=== PATIENT | female | born 1950 | race Caucasian/White ===

== ENCOUNTER 2018-02-15 10:17 | Inpatient (IN) ==
[2018-02-15 10:52] LABS: Basophils % 0.2 %; Eosinophils % 0.2 %; Hematocrit 49.9 % (35.3-44.9); Hemoglobin 16.6 g/dL (11.5-15.4); Immature Granulocytes % 0.6 % (0-4); Mean Corpuscular HGB Conc 33.3 g/dL (31.6-35.5); Mean Corpuscular Hemoglobin 29.6 pg (28.0-33.3); Mean Corpuscular Volume 88.9 fL (83.0-100.0); Monocytes # 0.9 K/mcL (0.0-1.3); Monocytes % 7.1 %; Neutrophils # 8.4 K/mcL (1.6-8.9); Platelet Count 440 K/mcL (140-400); Red Blood Count 5.61 M/mcL (3.82-4.97); Red Cell Distribution Width 13.1 % (11.5-14.5); Segmented Neutrophils % 67.9 %
[2018-02-15 11:08] LABS: Albumin 4.4 g/dL (3.5-5.7); Bilirubin,Direct 0.4 mg/dL (0.0-0.2); Bilirubin,Indirect 1.3 mg/dL (0.0-1.2); Bilirubin,Total 1.7 mg/dL (0.3-1.0); Calcium 10.1 mg/dL (8.6-10.3); Globulin 4.6 g/dL (2.4-3.5); Potassium 3.7 mEq/L (3.5-5.1)
[2018-02-15] MEDS ORDERED: 0.9 % Sodium Chloride 1,000 ML IVC ONE ×2 (11:49→15:54)
--- NOTE | 2018-02-15 11:53 | Emergency Department Note ---
Disposition Clinical Impression: DARCI (acute kidney injury) Abdominal pain Qualifiers: Abdominal location: right upper quadrant Qualified Code(s): R10.11 - Right upper quadrant pain Pancreatitis Qualifiers: Chronicity: acute Pancreatitis type: unspecified pancreatitis type Acute pancreatitis complication: unspecified Qualified Code(s): K85.90 - Acute pancreatitis without necrosis or infection, unspecified Disposition: Admitted As Inpatient Condition: Undetermined Referrals: NONE,PCP [Primary Care Provider] - Forms: ED Satisfaction Letter Time of Disposition: 16:14 Nausea/Vomiting/Diarrhea HPI - General Chief complaint: ED Nausea/Vomiting/Diarrhea Stated complaint: diarrhea, weakness Time Seen by Provider: 02/15/18 11:37 Source: patient Mode of arrival: ambulatory Limitations: no limitations Nursing Notes Reviewed: Yes Vital Signs Reviewed: Yes - History of Present Illness HPI Narrative: 68-year-old female arrives to the emergency department with 5 days of nausea and inability to eat and 3 days of right upper quadrant abdominal pain. The patient states that she has also had a couple episodes of diarrhea. She denies any fevers, chills or any other previous abdominal pain similar to this. She denies any other complaints at this time. She is very uncomfortable in the room when examined. Pt Subjective Complaint: nausea, vomiting, diarrhea, abdominal pain - Related Data Home Medications Medication Instructions Recorded Confirmed No Known Home Drugs 02/15/18 02/15/18 Allergies Allergy/AdvReac Type Severity Reaction Status Date / Time No Known Allergies Allergy Verified 02/15/18 12:21 All systems ED: reviewed and negative except as stated. Constitutional: Denies: fever, chills, weakness ENT ED: Denies: congestion Cardiovascular: Denies: chest pain Respiratory: Denies: dyspnea Gastrointestinal: Reports: abdominal pain, nausea, vomiting, diarrhea. Denies: constipation, hematemesis, melena, hematochezia Genitourinary: Denies: urgency, dysuria Musculoskeletal: Denies: back pain, neck pain Neurological: Denies: headache, weakness Past Medical History - Past Medical History Attestation: Yes The following information was validated with the patient. Source: patient Medical history: Reports: no medical history Surgical history: Reports: non-contributory Psychiatric history: Reports: no psych history - Social History Smoking Status: Current every day smoker Smokeless Tobacco Status: No Alcohol use: Reports: none Drug use: Reports: none Physical Exam - General Limitations: no limitations General appearance: alert, in no apparent distress - Head Head exam: atraumatic, normocephalic, normal inspection - Eye Eye exam: Present: normal appearance, PERRL, EOMI - ENT ENT exam: normal exam, normal oropharynx, mucous membranes moist - Neck Neck exam: Present: normal inspection, full ROM, trachea midline - Chest Chest inspection: Present: normal inspection, symmetric chest wall rise - Respiratory Respiratory exam: Present: normal lung sounds bilaterally - Cardiovascular Cardiovascular exam: Present: regular rate, normal rhythm, normal heart sounds - Abdominal Exam Abdominal exam: Present: soft, tenderness (RUQ pain), guarding, Tapia's sign. Absent: distention, rebound, rigidity, Rovsing's sign, tenderness at McBurney's Point, pulsatile mass Course Vital Signs Temperature 97.3 F L 02/15/18 10:26 Pulse Rate 89 02/15/18 10:26 Respiratory Rate 18 02/15/18 10:26 Blood Pressure 104/69 02/15/18 10:26 O2 Sat by Pulse Oximetry 97 02/15/18 10:26 Temperature 97.3 F L 02/15/18 10:26 Pulse Rate 81 02/15/18 15:28 Respiratory Rate 15 02/15/18 15:28 Blood Pressure 144/83 02/15/18 15:28 O2 Sat by Pulse Oximetry 99 02/15/18 15:28 Oxygen Delivery Oxygen Delivery Room Air Nausea/Vomiting/Diarrhea - MDM Narrative Medical decision making narrative: Workup in the emergency department demonstrates elevation in lipase as well as elevated bilirubin. The patient's right upper quadrant ultrasound demonstrates no acute process including no dilation of the common bile duct. CT scan demonstrates findings consistent with pancreatitis. The patient will be admitted to the hospital this time. She again denies any desire for pain medication. The patient has no previous history of pancreatitis and no previous alcohol use. The patient agrees to plan of care and further workup. She does have a acute kidney injury noted as well from previous lab work. She denies any other complaints at this time. She will be admitted the hospital. Accepted by Dr. Coats - Lab Data Lab results reviewed: Yes I reviewed the patient's lab results. Result diagrams: 02/15/18 10:30 02/15/18 10:30 Lab Results 02/15/18 02/15/18 02/15/18 Range/Units 10:30 10:30 11:55 WBC 12.3 H (4.3-11.1) K/mcL RBC 5.61 H (3.82-4.97) M/mcL Hgb 16.6 H (11.5-15.4) g/dL Hct 49.9 H (35.3-44.9) % MCV 88.9 (83.0-100.0) fL MCH 29.6 (28.0-33.3) pg MCHC 33.3 (31.6-35.5) g/dL RDW 13.1 (11.5-14.5) % Plt Count 440 H (140-400) K/mcL MPV 9.0 L (9.4-12.4) fL Immature Gran % 0.6 (0-4) % Seg Neutrophils % 67.9 % Lymphocytes % 24.0 % Monocytes % 7.1 % Eosinophils % 0.2 % Basophils % 0.2 % Neutrophils # 8.4 (1.6-8.9) K/mcL Lymphocytes # 3.0 (0.6-4.6) K/mcL Monocytes # 0.9 (0.0-1.3) K/mcL Eosinophils # 0.0 (0.0-0.6) K/mcL Basophils # 0.0 (0.0-0.2) K/mcL Sodium 130 L (136-145) mEq/L Potassium 3.7 (3.5-5.1) mEq/L Chloride 94 L (98-107) mEq/L Carbon Dioxide 25 (23-29) mEq/L BUN 21 (8-23) mg/dL Creatinine 1.32 H (0.60-1.20) mg/dL Est GFR ( Amer) 48 L (> 60) Est GFR (Non-Af Amer) 40 L (> 60) BUN/Creatinine Ratio 16 (6-26) Glucose 118 H (70-105) mg/dL Calculated Osmolality 274 L (280-300) Calcium 10.1 (8.6-10.3) mg/dL Total Bilirubin 1.7 H (0.3-1.0) mg/dL Direct Bilirubin 0.4 H (0.0-0.2) mg/dL Indirect Bilirubin 1.3 H (0.0-1.2) mg/dL AST 29 (13-39) Units/L ALT 17 (7-52) Units/L Alkaline Phosphatase 102 (34-104) Units/L Serum Total Protein 9.0 H (6.4-8.9) g/dL Albumin 4.4 (3.5-5.7) g/dL Globulin 4.6 H (2.4-3.5) g/dL Albumin/Globulin Ratio 1.0 L (1.1-2.2) Lipase 213 H (11-82) Units/L Urine Color Yellow (Yellow) Urine Clarity Cloudy A (Clear) Urine pH 7.5 (5.0-8.0) pH Units Ur Specific [place] 1.019 (1.010-1.025) Urine Protein 100 H (Neg-Trace) mg/dL Urine Glucose (UA) 100 H (Normal) mg/dL Urine Ketones Negative (Negative) mg/dL Urine Blood Trace H (Negative) Urine Nitrite Negative (Negative) Urine Bilirubin Negative (Negative) Urine Urobilinogen Normal (Normal) mg/dL Ur Leukocyte Esterase Moderate H (Negative) Urine Microscopic RBC 3-5 H (0-3) per hpf Urine Microscopic WBC 5-15 H (0-3) per hpf Ur Squamous Epith Cells Many H (None-Few) per lpf Urine Bacteria Few (None-Few) per hpf Hyaline Casts Moderate H (None-Few) per lpf Ur Culture Indicated? NO. (NO) - Radiology Data Radiology results reviewed: Yes I reviewed the patient's radiology results. Gallbladder Ultrasound 02/15/18 11:50 IMPRESSION: 1. No acute pathology appreciated. In particular, there is no dilation of the common bile duct, and no evidence of acute cholecystitis. 2. Possible calcifications within the liver. D/ / Slava Stephens / Slava Stephens Interpreting Provider: Slava Stephens Abdomen/Pelvis CT 02/15/18 14:17 IMPRESSION: 1. Findings concerning for acute pancreatitis with secondary duodenitis. 2. 6.0 cm right adnexal cyst, likely ovarian in origin. Recommend further evaluation with ultrasound. D/ / Taj Delatorre MD / Taj Delatorre MD Interpreting Provider: Taj Delatorre MD
--- NOTE | 2018-02-15 13:01 | Emergency Department Note ---
Disposition Clinical Impression: Abdominal pain Qualifiers: Abdominal location: right upper quadrant Qualified Code(s): R10.11 - Right upper quadrant pain Disposition: Still a Patient Referrals: NONE,PCP [Primary Care Provider] - Forms: ED Satisfaction Letter General Adult HPI - General Chief complaint: ED Nausea/Vomiting/Diarrhea Stated complaint: diarrhea, weakness Time Seen by Provider: 02/15/18 11:37 Source: patient Mode of arrival: ambulatory Limitations: no limitations - History of Present Illness Pain Scale: 7 - Related Data Home Medications Medication Instructions Recorded Confirmed No Known Home Drugs 02/15/18 02/15/18 Allergies Allergy/AdvReac Type Severity Reaction Status Date / Time No Known Allergies Allergy Verified 02/15/18 12:21 Constitutional: Denies: fever, chills, weakness ENT ED: Denies: congestion Cardiovascular: Denies: chest pain Respiratory: Denies: dyspnea Gastrointestinal: Reports: abdominal pain, nausea, vomiting, diarrhea. Denies: constipation, hematemesis, melena, hematochezia Genitourinary: Denies: urgency, dysuria Musculoskeletal: Denies: back pain, neck pain Neurological: Denies: headache, weakness Past Medical History - Past Medical History Medical history: Reports: no medical history Surgical history: Reports: non-contributory Psychiatric history: Reports: no psych history - Social History Smoking Status: Current every day smoker Smokeless Tobacco Status: No Alcohol use: Reports: none Drug use: Reports: none Physical Exam - General Limitations: no limitations General appearance: alert, in no apparent distress Course Vital Signs Temperature 97.3 F L 02/15/18 10:26 Pulse Rate 89 02/15/18 10:26 Respiratory Rate 18 02/15/18 10:26 Blood Pressure 104/69 02/15/18 10:26 O2 Sat by Pulse Oximetry 97 02/15/18 10:26 Temperature 97.3 F L 02/15/18 10:26 Pulse Rate 89 02/15/18 10:26 Respiratory Rate 18 02/15/18 10:26 Blood Pressure 104/69 02/15/18 10:26 O2 Sat by Pulse Oximetry 97 02/15/18 10:26 Oxygen Delivery Oxygen Delivery Room Air Medical Decision Making - Lab Data Result diagrams: 02/15/18 10:30 02/15/18 10:30 Lab Results 02/15/18 02/15/18 Range/Units 10:30 10:30 WBC 12.3 H (4.3-11.1) K/mcL RBC 5.61 H (3.82-4.97) M/mcL Hgb 16.6 H (11.5-15.4) g/dL Hct 49.9 H (35.3-44.9) % MCV 88.9 (83.0-100.0) fL MCH 29.6 (28.0-33.3) pg MCHC 33.3 (31.6-35.5) g/dL RDW 13.1 (11.5-14.5) % Plt Count 440 H (140-400) K/mcL MPV 9.0 L (9.4-12.4) fL Immature Gran % 0.6 (0-4) % Seg Neutrophils % 67.9 % Lymphocytes % 24.0 % Monocytes % 7.1 % Eosinophils % 0.2 % Basophils % 0.2 % Neutrophils # 8.4 (1.6-8.9) K/mcL Lymphocytes # 3.0 (0.6-4.6) K/mcL Monocytes # 0.9 (0.0-1.3) K/mcL Eosinophils # 0.0 (0.0-0.6) K/mcL Basophils # 0.0 (0.0-0.2) K/mcL Sodium 130 L (136-145) mEq/L Potassium 3.7 (3.5-5.1) mEq/L Chloride 94 L (98-107) mEq/L Carbon Dioxide 25 (23-29) mEq/L BUN 21 (8-23) mg/dL Creatinine 1.32 H (0.60-1.20) mg/dL Est GFR ( Amer) 48 L (> 60) Est GFR (Non-Af Amer) 40 L (> 60) BUN/Creatinine Ratio 16 (6-26) Glucose 118 H (70-105) mg/dL Calculated Osmolality 274 L (280-300) Calcium 10.1 (8.6-10.3) mg/dL Total Bilirubin 1.7 H (0.3-1.0) mg/dL Direct Bilirubin 0.4 H (0.0-0.2) mg/dL Indirect Bilirubin 1.3 H (0.0-1.2) mg/dL AST 29 (13-39) Units/L ALT 17 (7-52) Units/L Alkaline Phosphatase 102 (34-104) Units/L Serum Total Protein 9.0 H (6.4-8.9) g/dL Albumin 4.4 (3.5-5.7) g/dL Globulin 4.6 H (2.4-3.5) g/dL Albumin/Globulin Ratio 1.0 L (1.1-2.2) Lipase 213 H (11-82) Units/L Attestation Statement - Attestation Attestation: I examined this patient and my medical decision-making was reviewed with the Resident Physician. I agree with the documented findings, disposition and treatment plan as described except to the extent set forth below. 68 year old terra presents to the ED with complaints of N/V/D with (+) murphys sign and states taht thsi has been going on for a frw days. SHe has elevated bili, lipase, and mild elevation in WBC which is concerning for acute luciana. We will conitune with abdominal pain workup and obtain an US to rule out acute luciana and then if that is unremarkbale we will followup with a ABCT. Yuridia has declined pain medications at this time
[2018-02-15 13:07] LABS: Bilirubin,Urine Negative (Negative); Blood,Urine Trace (Negative); Clarity,Urine Cloudy (Clear); Color,Urine Yellow (Yellow); Glucose,Urine (UA) 100 mg/dL (Normal); Ketones,Urine Negative (Negative); Leukocyte Esterase,Urine Moderate (Negative); Nitrite,Urine Negative (Negative); PH,Urine 7.5 pH Units (5.0-8.0); Protein,Urine 100 mg/dL (Neg-Trace); Specific Gravity,Urine 1.019 (1.010-1.025); Urobilinogen,Urine Normal (Normal)
[2018-02-15 13:11] LABS: Bacteria,Urine Few per hpf (None-Few); Hyaline Casts,Urine Moderate per lpf (None-Few); Squamous Epithelial Cell,Urine Many per lpf (None-Few)
[2018-02-15] MEDS ORDERED: *HR* HYDROcodone/Acet 5/325 mg TABLET PO PRN (16:38)
[2018-02-15] MEDS ORDERED: Naloxone 0.4 MG/ML INJ IVP PRN ×2 (16:38)
[2018-02-15] MEDS ORDERED: Ondansetron 4 MG/2 ML VIAL IVP PRN (16:38)
--- NOTE | 2018-02-15 17:15 | Internal Med History&Physical ---
Date of Encounter: 02/15/18 Time of Encounter: 17:13 Assessment and Plan (1) Pancreatitis Current visit: Yes Status: Acute Patient presents today with right upper quadrant and left upper quadrant abdominal pain as well as nausea and vomiting since Thursday. She reports that she has been unable to tolerate oral intake due to vomiting. CT of abdomen and pelvis today reveals acute pancreatitis. Gallbladder ultrasound was negative for cholecystitis. His workup included a lipase which resulted to 13, total bilirubin of 1.7, direct bilirubin 0.4, indirect bilirubin 1.3. All vitals remained stable. -Start conservative treatment including IVF, analgesia, and antiemetics -IVF 0.9% NS at 125ml/hr -Zofran 4mg Q6hrs for nausea -NPO now -[place] 5/325 Q6hrs PRN -Continuous tele, -Recheck lipase in am -CBCD, CMP in am. -check lipids in am -lipase in am Qualifiers: Chronicity: acute Pancreatitis type: unspecified pancreatitis type Acute pancreatitis complication: unspecified Qualified Code(s): K85.90 - Acute pancreatitis without necrosis or infection, unspecified (2) Abdominal pain Current visit: Yes Status: Acute Qualifiers: Abdominal location: right upper quadrant Qualified Code(s): R10.11 - Right upper quadrant pain (3) DARCI (acute kidney injury) Current visit: Yes Status: Acute secondary to dehydration. She has been unable to eat or drink d/t N/V. Pancreatitis per CT today. IVF Avoid nephrotoxins serum cr in am (4) Nausea & vomiting Current visit: Yes Status: Acute Qualifiers: Vomiting Intractability: unspecified Qualified Code(s): R11.2 - Nausea with vomiting, unspecified (5) Dehydration Current visit: Yes Status: Acute Due to multiple days of nausea and vomiting secondary to acute pancreatitis. See further planning above (6) DVT prophylaxis Current visit: Yes Status: Acute Heparin 5000 units SC BID Internal Medicine - H&P: HPI Chief complaint: abdominal pain Admitted From: Home Plans for Post Hospital Care: Home History of present illness: Ms. Fuentes is a 68 year old female with no prior medical history presents today with right upper quadrant and left upper quadrant abdominal pain as well as nausea and vomiting since Thursday. She describes that abdominal pain as dull , intermittent, spasm like pain. She reports that she has been unable to tolerate oral intake due to vomiting. She denies any fevers, chills, chest pain , dyspnea, flank pain, or dysuria. CT of abdomen and pelvis today reveals acute pancreatitis. Gallbladder ultrasound was negative for cholecystitis. His workup included a lipase which resulted to 13, total bilirubin of 1.7, direct bilirubin 0.4, indirect bilirubin 1.3. Past Med Surg Social Fam HX - Past Medical History Medical history: no medical history Psychiatric history: no psych history - Past Surgical History Surgical History: non-contributory - Social History Smoking Status: Current every day smoker Smokeless Tobacco Status: No Alcohol use: none Drug use: none - Family History Father Hx Family Cardiac Disorders: Yes ([place]) Sister Hx Family Cancer: Yes Hx Family Endocrine Disorder: Yes (DM) Internal Medicine - H&P: Meds No Known Home Drugs 02/15/18 [History] 3 Allergy/AdvReac Type Severity Reaction Status Date / Time No Known Allergies Allergy Verified 02/15/18 12:21 All Systems PM: A 10-system review of systems was performed and is negative for pertinent findings except as documented above in the HPI. Review of systems: REVIEW OF SYSTEMS GENERAL: Positive for any nausea, vomiting, fevers, chills, & weight loss. NEUROLOGIC: Negative for any blurry vision, blind spots, double vision, facial asymmetry, dysphagia, dysarthria, hemiparesis, hemisensory deficits, vertigo, ataxia. HEENT: Negative for any head trauma, neck trauma, neck stiffness, photophobia, phonophobia, sinusitis, rhinitis. CARDIAC: Negative for any chest pain, dyspnea on exertion, paroxysmal nocturnal dyspnea, peripheral edema. PULMONARY: Negative for any shortness of breath, wheezing, COPD, or TB exposure. GASTROINTESTINAL: Negative for any bright red blood per rectum, melena. Positive for right and left upper quadrant abdominal pain GENITOURINARY: Negative for any dysuria, hematuria, incontinence. INTEGUMENTARY: Negative for any rashes, cuts, insect bites. RHEUMATOLOGIC: Negative for any joint pains, photosensitive rashes, history of vasculitis or kidney problems. HEMATOLOGIC: Negative for any abnormal bruising, frequent infections or bleeding. - Constitutional Vitals: Temp Pulse Resp BP Pulse Ox 97.3 F L 69 15 147/92 98 02/15/18 10:26 02/15/18 16:53 02/15/18 16:53 02/15/18 16:53 02/15/18 16:53 General appearance: Present: cooperative, A&O X 3, no acute distress, answers questions appropriately Exam: PHYSICAL EXAMINATION: GENERAL: The patient is a well-developed, well-nourished female in no apparent distress. She is alert and oriented x3. NECK: Supple. No carotid bruits. No lymphadenopathy or thyromegaly. LUNGS: Clear to auscultation. HEART: Regular rate and rhythm without murmur. ABDOMEN: Soft, and nondistended. Positive bowel sounds. No hepatosplenomegaly was noted. RUQ, LUQ abdominal pain to palpation and + carranza's sign EXTREMITIES: Without any cyanosis, 2+ B/L radial and pedal pulses. No extermity edema, erythema or tenderness SKIN: No ulceration, rashes or lesions present Internal Med - H&P Results - Labs CBC & Chem 7: 02/15/18 10:30 02/15/18 10:30 - Impressions Impressions Gallbladder Ultrasound 02/15/18 11:50 IMPRESSION: 1. No acute pathology appreciated. In particular, there is no dilation of the common bile duct, and no evidence of acute cholecystitis. 2. Possible calcifications within the liver. D/ / Slava Stephens / Slava Stephens Interpreting Provider: Slava Stephens Abdomen/Pelvis CT 02/15/18 14:17 IMPRESSION: 1. Findings concerning for acute pancreatitis with secondary duodenitis. 2. 6.0 cm right adnexal cyst, likely ovarian in origin. Recommend further evaluation with ultrasound. D/ / Taj Delatorre MD / Taj Delatorre MD Interpreting Provider: Taj Delatorre MD
[2018-02-15] MEDS: *HR* Heparin 5,000 UNIT/ML VIAL SQ SCH (19:03)
[2018-02-15] MEDS: 0.9 % Sodium Chloride 1,000 ML IVC SCH (19:41)
[2018-02-16] MEDS: 0.9 % Sodium Chloride 1,000 ML IVC SCH (04:04)
[2018-02-16] MEDS: *HR* Heparin 5,000 UNIT/ML VIAL SQ SCH ×2 (05:14→18:22)
[2018-02-16 07:24] LABS: Basophils # 0.1 K/mcL (0.0-0.2); Basophils % 0.5 %; Eosinophils # 0.1 K/mcL (0.0-0.6); Eosinophils % 1.2 %; Hematocrit 39.7 % (35.3-44.9); Hemoglobin 13.1 g/dL (11.5-15.4); Immature Granulocytes % 0.4 % (0-4); Lymphocytes # 4.8 K/mcL (0.6-4.6); Lymphocytes % 48.6 %; Mean Corpuscular Hemoglobin 29.6 pg (28.0-33.3); Mean Corpuscular Volume 89.8 fL (83.0-100.0); Mean Platelet Volume 9.3 fL (9.4-12.4); Monocytes # 0.8 K/mcL (0.0-1.3); Monocytes % 8.5 %; Neutrophils # 4.1 K/mcL (1.6-8.9); Platelet Count 332 K/mcL (140-400); Red Blood Count 4.42 M/mcL (3.82-4.97); Red Cell Distribution Width 12.9 % (11.5-14.5); Segmented Neutrophils % 40.8 %
[2018-02-16 07:39] LABS: Chol/HDL Ratio 3.8 (0-4.9)
--- NOTE | 2018-02-16 09:23 | Electrocardiograph Report ---
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
--- NOTE | 2018-02-16 17:36 | Internal Med Progress Note ---
Date of Encounter: 02/16/18 Time of Encounter: 17:34 - Assessment and plan (1) Pancreatitis Current Visit: Yes Status: Acute Assessment and plan: 68-year-old female with no significant past medical history, admitted with progressive right upper abdominal pain. Mildly elevated WBC is resolved, serum creatinine repeat is pending. CT abdomen/pelvis shows changes suggestive of acute pancreatitis Right upper quadrant ultrasound shows no evidence of gallstones or cholecystitis. Lipase level unchanged but meets criteria for acute pancreatitis Acute pancreatitis-likely due to passed small gallstones. Continue supportive care with bowel rest, IV hydration, pain control, when necessary antiemetics. Start clear liquids if pain is controlled; monitor LFTs; check lipid profile. Hold IV fluids, advance diet as tolerated. Qualifiers: Chronicity: acute Pancreatitis type: unspecified pancreatitis type Acute pancreatitis complication: unspecified Qualified Code(s): K85.90 - Acute pancreatitis without necrosis or infection, unspecified (2) Hyponatremia Current Visit: Yes Status: Acute Assessment and plan: Likely from dehydration. She was given IV fluids and diet is being advance. Will recheck BMP. (3) DARCI (acute kidney injury) Current Visit: Yes Status: Acute Assessment and plan: Secondary to dehydration. Given IV fluids. Will recheck BMP (4) Abdominal pain Current Visit: Yes Status: Acute Qualifiers: Abdominal location: right upper quadrant Qualified Code(s): R10.11 - Right upper quadrant pain (5) DVT prophylaxis Current Visit: Yes Status: Acute - Subjective Interval history: No acute events. Last night patient was able to tolerate some jello and juice. This AM patient was able to tolerate a little juice. She states she has no abdominal pain. Denies fevers/chills, n/v. - Constitutional Vitals: Temp Pulse Resp BP Pulse Ox 98.5 F 63 16 157/83 95 02/16/18 17:01 02/16/18 17:01 02/16/18 17:01 02/16/18 17:01 02/16/18 17:01 General appearance: Present: cooperative, A&O X 3, no acute distress, answers questions appropriately - Head Head exam: Present: atraumatic, normocephalic - Eye Eye exam: Present: PERRL, conjuntiva pink, sclera anicteric Pupils: Present: PERRL - Neck Neck exam general surgery: Present: supple, trachea midline. Absent: lymphadenopathy - Respiratory Respiratory exam: Present: CTAB. Absent: accessory muscle use, rales, rhonchi, wheezes - Cardiovascular Cardiovascular exam: Present: RRR, +S1, +S2. Absent: diastolic murmur, gallop, rubs, systolic murmur - GI/Abdominal GI/Abdominal exam: Present: normal bowel sounds, soft, no peritoneal signs. Absent: distended, tenderness - Extremities Exam Extremities exam: Present: warm, radial pulses palpable and symmetrical. Absent : calf tenderness, cyanotic, pedal edema - Neurological Exam Neurological exam: Present: CN II-XII intact, oriented X3, no focal deficits. Absent: pronater drift, facial droop, speech deficit - Skin Skin exam: Present: dry, intact Internal Medicine: Result - Labs CBC & Chem 7: 02/16/18 06:23 02/15/18 10:30 Labs: Short CBC 02/16/18 Range/Units 06:23 WBC 9.9 (4.3-11.1) K/mcL Hgb 13.1 D (11.5-15.4) g/dL Hct 39.7 (35.3-44.9) % Plt Count 332 (140-400) K/mcL Neutrophils # 4.1 (1.6-8.9) K/mcL Consult Discharge Plan - Plan Referrals: NONE,PCP [Primary Care Provider] -
[2018-02-16] MEDS ORDERED: Melatonin 3 MG TABLET PO PRN (21:37)
[2018-02-17] MEDS: *HR* Heparin 5,000 UNIT/ML VIAL SQ SCH (06:14)
[2018-02-17 08:06] LABS: Basophils % 0.3 %; Eosinophils # 0.1 K/mcL (0.0-0.6); Eosinophils % 1.4 %; Hematocrit 39.9 % (35.3-44.9); Hemoglobin 13.4 g/dL (11.5-15.4); Immature Granulocytes % 0.4 % (0-4); Lymphocytes # 4.3 K/mcL (0.6-4.6); Lymphocytes % 47.3 %; Mean Corpuscular HGB Conc 33.6 g/dL (31.6-35.5); Mean Corpuscular Hemoglobin 30.3 pg (28.0-33.3); Mean Corpuscular Volume 90.3 fL (83.0-100.0); Mean Platelet Volume 9.3 fL (9.4-12.4); Monocytes # 0.7 K/mcL (0.0-1.3); Monocytes % 8.2 %; Neutrophils # 3.8 K/mcL (1.6-8.9); Platelet Count 309 K/mcL (140-400); Red Blood Count 4.42 M/mcL (3.82-4.97); Segmented Neutrophils % 42.4 %
[2018-02-17 08:25] LABS: BUN/Creatinine Ratio 24 (6-26); Blood Urea Nitrogen 17 mg/dL (8-23); Calcium 8.9 mg/dL (8.6-10.3); Carbon Dioxide 25 mEq/L (23-29); Chloride 107 mEq/L (98-107); Glucose 105 mg/dL (70-105); Osmolality,Calculated 286 (280-300); Potassium 3.6 mEq/L (3.5-5.1); Sodium 137 mEq/L (136-145); eGFR For African Americans > 60 (> 60); eGFR For Non-African Americans > 60 (> 60)
[2018-02-17 10:49] VITALS: BP 136/75
--- NOTE | 2018-02-17 11:54 | Discharge Summary ---
- NOTES TO OUTPATIENT PROVIDER Notes to Outpatient Provider: - Follow-up with primary care provider in 2-4 days. - Discussed low fatty meals. Date of Encounter: 02/17/18 Time of Encounter: 11:50 - Discharge Diagnosis (1) Pancreatitis Priority: Primary Status: Resolved Qualifiers: Chronicity: acute Pancreatitis type: unspecified pancreatitis type Acute pancreatitis complication: unspecified Qualified Code(s): K85.90 - Acute pancreatitis without necrosis or infection, unspecified (2) Hyponatremia Priority: Secondary Status: Acute (3) DARCI (acute kidney injury) Priority: Secondary Status: Acute (4) Abdominal pain Priority: Secondary Status: Acute Qualifiers: Abdominal location: right upper quadrant Qualified Code(s): R10.11 - Right upper quadrant pain (5) DVT prophylaxis Priority: Secondary Status: Acute Hospital course: Ms. Fuentes is a 68 year old female presented with right upper abdominal pain. She had mildly elevated WBC, serum creatinine, serum lipase and total bilirubin. She had CT abdomen/pelvis that shows changes suggestive of acute pancreatitis. A right upper quadrant ultrasound showed no evidence of gallstones or cholecystitis. This was thought likely to passed small gallstone. She was provided with bowel rest, IV hydration, pain and nausea control. She was advanced her diet without any issue. She had DARCI that resolved with iv fluids. Patient had hyponatremia and DARCI due to dehydration. She was discharged home in stable condition. Discussed low fatty meals and follow-up with PCP. - Time Spent with Patient Total time spent providing and/or coordinating discharge services: - Discharge Medications Home Medications: No Known Home Drugs 02/15/18 [History] Allergies/Adverse Reactions: 3 Allergy/AdvReac Type Severity Reaction Status Date / Time No Known Allergies Allergy Verified 02/15/18 12:21 Date of admission: 02/15/18 16:38 Primary care physician: PCP NONE Discharging clinician: Juno Hobbs - Constitutional Vitals: Temp Pulse Resp BP Pulse Ox 98.3 F 57 15 136/75 98 02/17/18 10:48 02/17/18 10:48 02/17/18 10:48 02/17/18 10:48 02/17/18 10:48 General appearance: Present: cooperative, A&O X 3, no acute distress, answers questions appropriately - Head Head exam: Present: atraumatic, normocephalic - Eye Eye exam: Present: PERRL, conjuntiva pink, sclera anicteric Pupils: Present: PERRL - Neck Neck exam general surgery: Present: supple, trachea midline. Absent: lymphadenopathy - Respiratory Respiratory exam: Present: CTAB. Absent: accessory muscle use, rales, rhonchi, wheezes - Cardiovascular Cardiovascular exam: Present: RRR, +S1, +S2. Absent: diastolic murmur, gallop, rubs, systolic murmur - GI/Abdominal GI/Abdominal exam: Present: normal bowel sounds, soft, no peritoneal signs. Absent: distended, tenderness - Extremities Exam Extremities exam: Present: warm, radial pulses palpable and symmetrical. Absent : calf tenderness, cyanotic, pedal edema - Neurological Exam Neurological exam: Present: CN II-XII intact, oriented X3, no focal deficits. Absent: pronater drift, facial droop, speech deficit - Skin Skin exam: Present: dry, intact - Patient Status Disposition: Home, Self-Care Condition: Undetermined Functional capacity at discharge: independent ambulation Overall status at discharge: patient is back to baseline - Discharge Instructions Follow Up With: NONE,PCP [Primary Care Provider] - - Diet and Activity Activity: increase activity as tolerated Diet: low fat, low cholesterol
[2018-02-17] MEDS ORDERED: FLUARIX QUAD 2017-18 36MOS UP/PF 0.5 ML SYRINGE IM ONE (12:23)
== END 2018-02-17 13:55 | disposition home or self-care (01) | DRG 439 ==
LOC: EMEROO 10:17 → 3ANU 10:17
PROVIDERS: ADMIT Internal Medicine; ATTEND Internal Medicine